=== PATIENT | male | born 2000 | race Caucasian/White ===

== ENCOUNTER 2023-09-03 10:02 | Outpatient (AMB) | payer OTHER, SELFPAY ==
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
[2023-09-03 11:18] VITALS: BP 126/76; PULSE 76; TEMP 36.9; O2SAT 99; BMI 22.6
== END 2023-09-03 12:53 | disposition home or self-care (01) ==
PROVIDERS: Visit Provider Internal Medicine
DX: J06.9 Acute upper respiratory infection, unspecified (principal)
CPT/HCPCS: 99203

== ENCOUNTER 2024-01-22 02:01 | Emergency (ER) | payer OTHER, SELFPAY ==
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
[2024-01-22 02:11] VITALS: BP 148/84; PULSE 101; RESP 14; TEMP 36.8; O2SAT 96; BMI 21.9
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
[2024-01-22 06:00] VITALS: BP 135/78; PULSE 94; RESP 12; TEMP 37.1; O2SAT 97
[2024-01-22] MEDS: Diphth,Pertus(ACell),Tet Adult 0.5 ML SYRINGE IM (06:04)
[2024-01-22 06:12] VITALS: BP 135/78; PULSE 94; RESP 12; TEMP 37.1; O2SAT 97
== END 2024-01-22 06:10 | disposition home or self-care (01) ==
PROVIDERS: Emergency Provider Emergency Medicine
DX: S60.411A Abrasion of left index finger, initial encounter (principal); M79.642 Pain in left hand; Y26.XXXA Exposure to smoke, fire and flames, undetermined intent, initial encounter; Y93.9 Activity, unspecified; Y92.9 Unspecified place or not applicable; Y99.8 Other external cause status; Z23 Encounter for immunization
CPT/HCPCS: 73120; 90471; 90715; 99284